=== PATIENT | female | born 1990 | race Caucasian/White ===

== ENCOUNTER 2017-06-26 11:43 | Inpatient (IN) | payer OTHER ==
[~2017-06-26] VITALS: Ht 162.6 cm; Wt 72.6 kg
[~2017-06-26 11:43] MED LIST: BENADRYL50 MG PO; MILLIPRED DP5 M1 PO
[2017-06-27] MEDS ORDERED: PRENATAL TABLE1 EAC1 PO (15:05)
[2017-06-27] MEDS ORDERED: TYLENOL EXTRA500 MG PO (15:07)
== END 2017-06-28 15:43 | disposition home or self-care (01) | DRG 782 ==
LOC: OBS/DEL 11:43 → LDR 06-27 13:54
PROC: 4A1HXCZ Monitoring of Products of Conception, Cardiac Rate, External Approach (ICD-10-PCS; principal; 2017-06-27)
DX: O36.8130 Decreased fetal movements, third trimester, not applicable or unspecified (principal); Z34.83 Encounter for supervision of other normal pregnancy, third trimester

== ENCOUNTER 2017-08-11 02:43 | Outpatient (CLI) | payer OTHER ==
[~2017-08-11 02:43] MED LIST changes: +PRENATAL TABLE1 EAC1 PO; +TYLENOL EXTRA500 MG PO
== END 2017-08-11 14:59 | disposition home or self-care (01) ==
LOC: OBS/DEL 02:43
DX: O47.1 False labor at or after 37 completed weeks of gestation (principal); Z34.83 Encounter for supervision of other normal pregnancy, third trimester

== ENCOUNTER 2024-07-16 11:54 | Emergency (ER) | payer OTHER ==
[~2024-07-16] VITALS: Ht 162.6 cm; Wt 63.5 kg
[~2024-07-16 11:54] MED LIST changes: +PRENATAL TABLE1 EAC3 PO
[2024-07-16 12:08] VITALS: BP 136/91; O2SAT 95
[2024-07-16] MEDS ORDERED: EPINEPHRINE HCL/PF 1 MG/ML AMPUL ONE (12:09)
[2024-07-16] MEDS ORDERED: DIPHENHYDRAMINE HCL 50 MG/ML VIAL 1ML ONE (12:11)
[2024-07-16] MEDS ORDERED: METHYLPREDNISOLONE SOD SUCC 125 MG VIAL ONE (12:12)
[2024-07-16] MEDS ORDERED: EPINEPHRINE HCL/PF 1 MG/ML AMPUL SUBCUTANEO STA (12:40)
[2024-07-16] MEDS ORDERED: METHYLPREDNISOLONE SOD SUCC 125 MG VIAL IV STA (12:40)
[2024-07-16] MEDS ORDERED: DIPHENHYDRAMINE HCL 50 MG/ML VIAL 1ML IV STA (12:40)
== END 2024-07-16 13:32 | disposition home or self-care (01) ==
LOC: ER 11:56
DX: T36.8X5A Adverse effect of other systemic antibiotics, initial encounter (principal); Y92.89 Other specified places as the place of occurrence of the external cause; Z91.013 Allergy to seafood

== ENCOUNTER 2025-03-12 13:33 | Emergency (ER) | payer OTHER ==
[~2025-03-12] VITALS: Ht 162.6 cm; Wt 64.9 kg
[2025-03-12 14:45] VITALS: BP 116/68; O2SAT 97
[2025-03-12] MEDS ORDERED: FAMOTIDINE/PF 20 MG in 0.9 % SODIUM CHLORIDE 8 ML IV PUSH STA (15:58)
[2025-03-12] MEDS ORDERED: 0.9 % SODIUM CHLORIDE 1,000 ML IV SCH (16:00)
[2025-03-12] MEDS ORDERED: ONDANSETRON HCL 2 MG/ML VIAL IV ONE (16:00)
[2025-03-12] MEDS ORDERED: FAMOTIDINE/PF 20 MG/2 ML VIAL ONE (16:04)
[2025-03-12] MEDS ORDERED: ONDANSETRON HCL 2 MG/ML VIAL ONE (16:04)
[2025-03-12] MEDS ORDERED: DIPHENOXYLATE HCL/ATROPINE 1 UDTAB TABLET PO ONE (16:15)
[2025-03-12 16:37] LABS: BASO % 0.4 % (0.1-1.2); EOS # 0.20 (0.04-0.54); EOS % 2.6 % (0.7-7.0); LYMPH # 1.04 (1.18-3.74); LYMPH % 13.4 % (19.3-53.1); MEAN PLATELET VOLUME 9.20 fl (9.4-12.4); MONO # 0.58 (0.24-0.82); MONO % 7.4 % (4.7-12.5); NEUT # 5.93 (1.56-6.13); NEUT % 76.1 % (34.0-71.1); RED CELL DISTRIBUTION WIDTH 13.2 % (11.6-14.4)
[2025-03-12 17:35] LABS: ALT/SGPT 23.0 U/L (12-78); AST/SGOT 29.0 U/L (15-37); BILIRUBIN TOTAL 0.82 mg/dL (0.3-1.2); BUN CREA RATIO 25.0 (7.0-25.0); CREATININE SERUM 0.53 mg/dL (0.55-1.02); GFR 129.8; GLOBULINA 3.6 G/DL (2.4-3.5); GLUCOSE FASTING 68.0 mg/dL (65-100); OSMOLALITY SERUM 272.0 MOSM/KG (275-295)
[2025-03-12] MEDS ORDERED: ZOFRAN8 MG PO (19:53)
[2025-03-12] MEDS ORDERED: INTESTINEX680 M1 PO (19:53)
[2025-03-12] MEDS ORDERED: PEPCID AC20 MG PO (19:53)
== END 2025-03-12 20:11 | disposition home or self-care (01) ==
LOC: ER 13:33
PROVIDERS: General Practice
DX: K52.9 Noninfective gastroenteritis and colitis, unspecified (principal); Z91.013 Allergy to seafood